=== PATIENT | male | born 1960 | race Caucasian/White ===

== ENCOUNTER 2017-07-22 12:28 | Outpatient (CLI) | payer BC ==
--- NOTE | 2017-07-22 15:54 | MRI ---
MR ARTHROGRAM OF THE LEFT SHOULDER WITH INTRAARTICULAR CONTRAST: DATE: 07/22/17. PROVIDED CLINICAL HISTORY: Left shoulder pain. TECHNIQUE: Multiplanar, multisequence MR imaging was performed of the left shoulder after the intraarticular adm inistration of Gadolinium-based contrast-containing solution. Please see separately dictated procedu re report. FINDINGS: There is partial thickness interstitial tearing involving the majority of the thickness of the distal conjoined tendon at the footplate. This does not imbibe Gadolinium and, therefore, undersurface fib ers are likely not significantly involved. There is associated bursal surface irregularity/low-grade bursal surface partial-thickness tearing involving the distal infraspinatus tendon near the foot amberly te. The subscapularis and teres minor tendons appear intact. The glenoid labrum and glenohumeral articular cartilage demonstrate no abnormality. Minimal acromioclavicular joint degenerative changes are seen. There is lateral downsloping of the a cromion which narrows the subacromial space. Rotator cuff muscular volume appears preserved. No foc al concerning regional marrow or muscular signal abnormality is evident. IMPRESSION: 1. Interstitial and bursal surface partial tears involving the distal conjoined and infraspinatus te ndons as described above. 2. Minimal acromioclavicular joint degenerative change. POS: OFF
--- NOTE | 2017-07-23 08:38 | RAD ---
LEFT SHOULDER ARTHROGRAM: History: Left shoulder pain. Rotator cuff tear. Comparison: None. Exposure 1.6 minutes, 157.1 mGy*cm^2. 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 No fracture or dislocation. Successful left shoulder arthrogram. A total of 10 cc of contrast mixture was administered to the areli nt space. The patient tolerated the procedure well. No immediate or post procedure complication. Technique: Consent obtained to perform a left shoulder arthrogram. Left shoulder was evaluated. The skin was pre pped and draped in sterile fashion. 1% Lidocaine, buffered with sodium bicarbonate used for local ane sthesia. Under fluoroscopic guidance, 22 gauge spinal needle was advanced into the left shoulder join t space. 10 cc of contrast mixture was administered. Patient tolerated the procedure well. No immedia te or post procedure complication. IMPRESSION: Successful left shoulder arthrogram. POS: OFF
== END 2017-07-22 12:29 | disposition home or self-care (01) ==
LOC: RAD 12:28
PROVIDERS: ATTEND Orthopaedic Surgery
DX: M25.512 Pain in left shoulder (principal); S46.912A Strain of unspecified muscle, fascia and tendon at shoulder and upper arm level, left arm, initial encounter
CPT/HCPCS: 23350